=== PATIENT | female | born 1980 | race Caucasian/White ===

== ENCOUNTER 2020-04-08 14:46 | Emergency (ER) | payer SELFPAY ==
[2020-04-08] MEDS ORDERED: ONDANSETRON 4 MG/2 ML VIAL IVP STA (15:07)
[2020-04-08] MEDS ORDERED: HYDROmorphone 1 MG/ML CARPUJECT IVP STA ×3 (15:07→16:51)
--- NOTE | 2020-04-08 15:09 | ED Physician Documentation ---
PD HPI ABD PAIN - Stated complaint Stated Complaint: ABD PX, VOMITING - Chief complaint Chief Complaint: Abd Pain - History obtained from History obtained from: Patient - Additional information Additional information: 39-year-old woman with history of polycystic ovarian syndrome, had a remote laparoscopy and she thinks with a appendectomy for same. Developed relatively sudden onset right pelvic pain last night similar to prior ovarian cysts. She is missed cycle with her last period being a little over 2 weeks ago. No bleeding or discharge. Review of Systems Ten Systems: 10 systems reviewed and negative Constitutional: denies: Fever, Chills GI: reports: Abdominal Pain, Nausea. denies: Vomiting : reports: Reviewed and negative PD PAST MEDICAL HISTORY - Past Medical History Past Medical History: Yes : Other (pcos) - Past Surgical History General: Appendectomy - Present Medications Home Medications: Ambulatory Orders Medication Instructions Recorded Confirmed Oxycodone HCl/Acetaminophen 1 - 2 each PO Q6H PRN #14 tablet 04/08/20 [Percocet 5-325 mg Tablet] - Allergies Allergies/Adverse Reactions: Allergies Allergy/AdvReac Type Severity Reaction Status Date / Time NSAIDS (Non-Steroidal Allergy Anaphylaxis Verified 04/08/20 14:55 Anti-Inflamma metoclopramide [From Reglan] AdvReac Anxiety Verified 04/08/20 14:55 PD ED PE NORMAL - Vitals Vital signs reviewed: Yes - General General: Alert and oriented X 3, No acute distress - Cardiac Cardiac: RRR, No murmur - Respiratory Respiratory: No respiratory distress, Clear bilaterally - Abdomen Abdomen: Normal bowel sounds, Soft, Other (Mild right pelvic tenderness without surgical signs) - Neuro Neuro: Alert and oriented X 3, Normal speech - Psych Psych: Normal mood, Normal affect Results - Vitals Vitals: Vital Signs - 24 hr 04/08/20 04/08/20 14:53 16:55 Temperature 36.8 C Heart Rate 88 80 Respiratory 18 20 Rate Blood Pressure 158/115 H 168/101 H O2 Saturation 98 100 Oxygen O2 Source Room air - Labs Labs: Laboratory Tests 04/08/20 04/08/20 04/08/20 15:01 15:17 15:17 WBC 6.9 RBC 4.03 L Hgb 11.5 L Hct 35.5 L MCV 88.1 MCH 28.5 MCHC 32.4 RDW 15.4 H Plt Count 360 MPV 9.5 Neut # (Auto) 4.6 Lymph # (Auto) 1.5 [place] # (Auto) 0.5 Eos # (Auto) 0.2 Baso # (Auto) 0.0 Absolute Nucleated RBC 0.00 Nucleated RBC % 0.0 Sodium 135 Potassium 3.8 Chloride 99 L Carbon Dioxide 23 Anion Gap 13.0 BUN 10 Creatinine 0.9 Estimated GFR (MDRD) 70 L Glucose 299 H Glycated Hemoglobin Estim Average Glucose Calcium 9.1 Total Bilirubin 0.6 AST 27 ALT 38 Alkaline Phosphatase 80 Total Protein 7.2 Albumin 3.8 Globulin 3.4 Albumin/Globulin Ratio 1.1 Lipase 34 Urine Color YELLOW Urine Clarity HAZY Urine pH 6.0 Ur Specific Center 1.010 Urine Protein NEGATIVE Urine Glucose (UA) >=1000 H Urine Ketones NEGATIVE Urine Occult Blood LARGE H Urine Nitrite NEGATIVE Urine Bilirubin NEGATIVE Urine Urobilinogen 0.2 (NORMAL) Ur Leukocyte Esterase NEGATIVE Urine RBC TNTC H Urine WBC 0-3 Ur Squamous Epith Cells NONE SEEN Urine Bacteria None Seen Ur Microscopic Review INDICATED Urine Culture Comments NOT INDICATED Urine HCG, Qual NEGATIVE 04/08/20 15:17 WBC RBC Hgb Hct MCV MCH MCHC RDW Plt Count MPV Neut # (Auto) Lymph # (Auto) [place] # (Auto) Eos # (Auto) Baso # (Auto) Absolute Nucleated RBC Nucleated RBC % Sodium Potassium Chloride Carbon Dioxide Anion Gap BUN Creatinine Estimated GFR (MDRD) Glucose Glycated Hemoglobin 8.9 H Estim Average Glucose 209 H Calcium Total Bilirubin AST ALT Alkaline Phosphatase Total Protein Albumin Globulin Albumin/Globulin Ratio Lipase Urine Color Urine Clarity Urine pH Ur Specific Center Urine Protein Urine Glucose (UA) Urine Ketones Urine Occult Blood Urine Nitrite Urine Bilirubin Urine Urobilinogen Ur Leukocyte Esterase Urine RBC Urine WBC Ur Squamous Epith Cells Urine Bacteria Ur Microscopic Review Urine Culture Comments Urine HCG, Qual - Rads (name of study) Pelvic son Radiology: Final report received, See rad report CT A/P Radiology: EMP read contemporaneously, See rad report PD MEDICAL DECISION MAKING - ED course ED course: 39-year-old woman with history of PCOS presents with right pelvic pain fairly sudden onset. No evidence of torsion on ultrasound, given the blood in her urine this was followed by CT to evaluate for potential ureteral lithiasis which was also not found. Pain better after meds here. Departure - Departure Disposition: 01 Home, Self Care Clinical Impression: Hyperglycemia Abdominal pain Qualifiers: Abdominal location: right lower quadrant Qualified Code(s): R10.31 - Right lower quadrant pain Condition: Good Record reviewed to determine appropriate education?: Yes Instructions: ED Abdominal Pain Appendx Poss Prescriptions: Oxycodone HCl/Acetaminophen [Percocet 5-325 mg Tablet] 1 - 2 each PO Q6H PRN #14 tablet PRN Reason: pain Comments: The cause of your abdominal pain is not clear, no evidence of ovarian cyst or kidney stone, could be a very small kidney stone, return for new or worsening symptoms or if not better over the next 24 hours or so. Anytime if worse. Your blood sugar is elevated today at 299, your hemoglobin A1c is 8.9 suggesting some level of chronic hyperglycemia. Follow-up with your doctor regarding this, next available appointment. Continue your metformin. Discharge Date/Time: 04/08/20 17:21
[2020-04-08 15:26] LABS: BILIRUBIN,URINE NEGATIVE (NEGATIVE); GLUCOSE, URINE (UA) >=1000 mg/dL (NEGATIVE); KETONES,URINE (UA) NEGATIVE (NEGATIVE); LEUKOCYTE ESTERASE, URINE NEGATIVE (NEGATIVE); NITRITE,URINE NEGATIVE (NEGATIVE); OCCULT BLOOD,URINE LARGE (NEGATIVE); PROTEIN,URINE NEGATIVE (NEGATIVE); UROBILINOGEN,URINE 0.2 (NORMAL) E.U./dL (NORMAL)
[2020-04-08 15:28] LABS: BASOPHILS % (AUTO) 0.6 %; EOSINOPHILS # (AUTO) 0.2 10^3/uL (0.0-0.7); EOSINOPHILS % (AUTO) 3.5 %; HGB - HEMOGLOBIN 11.5 g/dL (12.0-16.0); LYMPHOCYTES # (AUTO) 1.5 10^3/uL (1.5-3.5); MEAN CORPUSCULAR HEMOGLOBIN 28.5 pg (27.0-31.0); MEAN CORPUSCULAR HGB CONC 32.4 g/dL (32.0-36.0); MEAN CORPUSCULAR VOLUME 88.1 fL (81.0-99.0); MEAN PLATELET VOLUME 9.5 fL (7.9-10.8); MONOCYTES # (AUTO) 0.5 10^3/uL (0.0-1.0); MONOCYTES % (AUTO) 7.3 %; NEUTROPHILS # (AUTO) 4.6 10^3/uL (1.5-6.6); NEUTROPHILS % (AUTO) 67.3 %; PLT - PLATELET COUNT 360 10^3/uL (130-450); RED BLOOD COUNT 4.03 10^6/uL (4.20-5.40); RED CELL DISTRIBUTION WIDTH 15.4 % (12.0-15.0); WHITE BLOOD COUNT 6.9 x10^3/uL (4.8-10.8)
[2020-04-08 15:28] LABS: CLARITY,URINE HAZY (CLEAR); HCG UR QUAL NEGATIVE
[2020-04-08 15:33] LABS: BACTERIA,URINE None Seen /HPF (None Seen); RBC,URINE TNTC /HPF (0-5); SQUAMOUS EPITHELIAL CELL,UR NONE SEEN (<= Few)
[2020-04-08 15:41] LABS: ALBUMIN 3.8 g/dL (3.2-5.5); ALBUMIN/GLOBULIN RATIO 1.1 (1.0-2.2); BILIRUBIN,TOTAL 0.6 mg/dL (0.2-1.0); CALCIUM 9.1 mg/dL (8.5-10.3); CREATININE 0.9 mg/dL (0.4-1.0); TOTAL PROTEIN 7.2 g/dL (6.7-8.2)
[2020-04-08 16:10] LABS: HB2 TOTAL 12.1 g/dL; HEMOGLOBIN A1C 0.89 g/dL; HEMOGLOBIN A1C % 8.9 % (4.6-6.2)
[2020-04-08 16:58] VITALS: BP 168/101
--- NOTE | 2020-04-08 17:00 | CT Report ---
PROCEDURE: Abdomen/Pelvis WO INDICATIONS: R abd pain, hematuria TECHNIQUE: Noncontrast 5 mm thick sections acquired from the diaphragms to the symphysis. 5 mm coronal and sagi ttal reformats were then performed. For radiation dose reduction, the following was used: automated exposure control, adjustment of mA and/or kV according to patient size. COMPARISON: None. FINDINGS: Image quality: Excellent. ABDOMEN: Lung bases: Lung bases are clear. Heart size is normal. Solid organs: There is diffuse fatty infiltration of the liver.. Gallbladder appears normal. Pancre as is normal in contours. No adrenal nodules. Kidneys are normal in size, without hydronephrosis or nephrolithiasis. Peritoneum and bowel: Unenhanced bowel loops demonstrate normal wall thickness and caliber. A small duodenal diverticulum is noted without surrounding fat stranding. No free fluid or air. Postsurgica l changes are seen from prior appendectomy. Nodes and vessels: No retroperitoneal or mesenteric adenopathy by size criteria. Aorta and inferior vena cava are normal in caliber. Miscellaneous: No ventral hernias. PELVIS: Genitourinary: Bladder wall thickness is normal. Miscellaneous: No inguinal hernias or adenopathy. Bones: No suspicious bony lesions. No vertebral body compression fractures. IMPRESSION: No acute abnormality is identified in the abdomen or pelvis. Diffuse hepatic steatosis. Reviewed by: Tim Velasco MD on 04/08/2020 4:59 PM PDT Approved by: Tim Velasco MD on 04/08/2020 4:59 PM PDT Station ID: [id number]
--- NOTE | 2020-04-08 17:00 | Ultrasound Report ---
PROCEDURE: Pelvic w/Transvag+Doppler Comp INDICATIONS: pelvic pain, R TECHNIQUE: Real-time scanning was performed of the pelvic organs, with image documentation. Additional endovagi nal scanning was necessary due to incomplete visualization of the adnexal and endometrial structures by transabdominal scanning. COMPARISON: None. FINDINGS: Technically suboptimal study secondary to patient body habitus. Transabdominal scanning: Limited scanning through the kidneys shows no hydronephrosis. No pathologi c free abdominal or pelvic fluid. Endovaginal scanning: Uterus: Uterus is anteverted and normal in size at 5.1 x 2.8 x 4.1 cm. The endometrium measures 4 m m in combined thickness. Ovaries: The right ovary measures 2.6 x 1.7 x 1.4 cm. The left ovary was not well seen. No suspiciou s adnexal masses or significant free fluid. IMPRESSION: 1. Grossly normal right ovary given nonvisualization. 2. Suboptimally seen left ovary. 3. Grossly normal uterus. 4. Preliminary results given to the emergency room provided by the technologist. Reviewed by: Margaret Estrada MD on 04/08/2020 4:59 PM PDT Approved by: Margaret Estrada MD on 04/08/2020 4:59 PM PDT Station ID: [id number]
[2020-04-08] MEDS ORDERED: diphenhydrAMINE 25 MG CAPSULE PO STA (17:12)
== END 2020-04-08 17:21 | disposition home or self-care (01) ==
LOC: ED 14:46
DX: R73.9 Hyperglycemia, unspecified (principal); R10.31 Right lower quadrant pain; R31.9 Hematuria, unspecified
CPT/HCPCS: 36415; 74176; 76830; 76856; 80053; 81001; 81025; 83036; 83690; 85025; 93975; 96374; 96376; 99284; A9270; J1170; 81003; 87086